=== PATIENT | male | born 1960 | race Caucasian/White ===

== ENCOUNTER 2019-04-06 16:12 | Observation (INO) | payer OTHER ==
[~2019-04-06] VITALS: Ht 175.3 cm; Wt 52.2 kg
[2019-04-06 16:28] VITALS: BP 112/76
[2019-04-06] MEDS ORDERED: KETOROLAC 60 MG/2 ML VIAL IM ONE (16:45)
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
--- NOTE | 2019-04-06 17:07 | NUR ---
CT AT THE BEDSIDE. GAVE WATER TO DRINK. CVANNOT PEE AT THIS TIME.
[2019-04-06 17:34] LABS: BASOPHILS # (AUTO) 0.2 K/uL (0.00-0.22); BASOPHILS % (AUTO) 1.3 % (0.0-2.0); EOSINOPHILS # (AUTO) 0.1 K/uL (0-0.4); EOSINOPHILS % (AUTO) 0.9 % (0.0-4.0); HEMATOCRIT 43.5 % (36-52); HEMOGLOBIN 14.8 g/dL (12.0-18.0); LYMPHOCYTES # (AUTO) 1.8 K/uL (2.0-11.5); LYMPHOCYTES % (AUTO) 15.3 % (20.5-51.1); MEAN CORPUSCULAR HEMOGLOBIN 31 pg (27-31); MEAN CORPUSCULAR HGB CONC 34 g/dL (33-37); MEAN CORPUSCULAR VOLUME 89.6 fL (80-94); MONOCYTES # (AUTO) 1.1 K/uL (0.8-1.0); MONOCYTES % (AUTO) 9.1 % (1.7-9.3); NEUTROPHILS # (AUTO) 8.8 K/uL (1.8-7.7); NEUTROPHILS % (AUTO) 73.4 % (42.2-75.2); PLATELET COUNT (AUTO) 150 K/uL (140-450); RED BLOOD CELL COUNT(AUTO) 4.85 MIL/uL (4.20-6.10); RED CELL DISTRIBUTION WIDTH 17.6 % (11.6-13.7); WHITE BLOOD COUNT (AUTO) 12.1 K/uL (4.8-10.8)
[2019-04-06 17:44] LABS: BILIRUBIN,URINE NEGATIVE (NEGATIVE); BLOOD, URINE NEGATIVE (NEGATIVE); COLOR,URINE YELLOW (YELLOW); LEUKOCYTE ESTERASE ,URINE TRACE (NEGATIVE); NITRITE, URINE NEGATIVE (NEGATIVE); UGLUCOSE NEGATIVE (NEGATIVE)
[2019-04-06 18:00] LABS: ANION GAP 9.6 (8-16); POTASSIUM 3.6 mmol/L (3.5-5.1)
[2019-04-06 18:05] LABS: ALBUMIN 2.4 g/dL (3.4-5.0); TOTAL BILIRUBIN 0.6 mg/dL (0.0-1.0)
--- NOTE | 2019-04-06 18:20 | NUR ---
PT ASKING FOR SNACKS TO EAT. OKAY FOR PO INTAKE PER MD. GAVE SOME JUICE, MILK TO THE PT.
--- NOTE | 2019-04-06 18:42 | NUR ---
[employer] AT THE BEDSIDE. PT ATE HIS SNACKS, NO VOMITING AT THIS TIME.
[2019-04-06 19:09] LABS: APPEARANCE,URINE HAZY (CLEAR)
--- NOTE | 2019-04-06 19:15 | NUR ---
TALKING TO PT REGARDING HIS CT RESULT. INFORMED HIM WILL BE ADMITTED. ORDERED REGULAR DIET FOR THE PT.
[2019-04-06 19:16] LABS: RBC,URINE NONE SEEN /HPF (0-5); WBC,URINE 0-5 /HPF (0-5)
[2019-04-06] MEDS ORDERED: ALBUTEROL 0.083% 2.5 MG/3 ML NEBU IH PRN (19:25)
[2019-04-06] MEDS ORDERED: HYDROcodone/APAP 5/325 MG 1 TAB TAB PO PRN (19:25)
[2019-04-06] MEDS ORDERED: MORPHINE SULFATE 4 MG/ML SYR IVP PRN (19:25)
[2019-04-06] MEDS ORDERED: ONDANSETRON 4 MG/2 ML VIAL IVP PRN (19:25)
[2019-04-06] MEDS ORDERED: ENAL-197 PO (19:59)
[2019-04-06] MEDS ORDERED: METO25TA PO (19:59)
[2019-04-06] MEDS ORDERED: NAPR-54 PO (19:59)
[2019-04-06] MEDS ORDERED: CLOP75TA26 PO (19:59)
[2019-04-06 20:30] VITALS: BP 144/90
--- NOTE | 2019-04-06 20:30 | NUR ---
Patient will be admitted to care of DR TOM WARREN. Admited to [facility] FLOOR. Will go to room 112 B. Belongings list completed. Report to CAITLYN NASH.
--- NOTE | 2019-04-06 20:30 | NUR ---
ADMITTED A 59M FROM ER. CAME BY ANGELA . C/O GENERALIZED WEAKNESS AND LUMBAR PAIN. ON MED SURG UNDER OBSERVATION. WITH NO /CO ANY DISCOMFORT AND PAIN AT THIS TIME. AMBULATE WITH SOME ASSISTANCE DUE TO WEAKNESS. ORIENTED TO HOSPITAL ROUTINES. PLAN OF CARE DISCUSSED AND VERBALIZED UNDERSTANDING. BED PLACED IN LOW POSITION. FREQ CHECK NEEDED. CALL LIGHT AND URINAL WITHIN EASY REACH. SKIN VERY DRY BUT INTACT. HAS HL ON THE RT AC G#20. CLEAR AND PATENT. WILL CONTINUE TO MONITOR AND FOLLOW UP ADMIT ORDER.
[2019-04-06] MEDS: MORPHINE SULFATE 2 MG/ML SYR IVP PRN (22:04)
--- NOTE | 2019-04-06 23:43 | NUR ---
PAGED DR. WARREN FOR PT WANTS SLEEPING PILL. DR. JUSTIN COMPUTATIONAL THEORY SCIENTIST. CALLED BACK WITH ORDER.
[2019-04-07] VITALS: BP 127/74
[2019-04-07] MEDS ORDERED: ZOLPIDEM 5 MG TAB PO SCH
--- NOTE | 2019-04-07 01:00 | NUR ---
SLEEPING. NO S/S OF ANY DISCOMFORT NOR PAIN NOTED. WILL CONTINUE TO MONITOR.
[2019-04-07] MEDS: MORPHINE SULFATE 2 MG/ML SYR IVP PRN ×3 (02:09→10:53)
--- NOTE | 2019-04-07 03:09 | NUR ---
MADE ROUNDS. PT ASLEEP. NO S/S OF ANY DISCOMFORT /PAIN NOTED.
--- NOTE | 2019-04-07 05:00 | NUR ---
MADE ROUNDS. PT STARTING TO GET SOME SLEEP AFTER GIVEN PAIN MED. WILL CONTINUE TO MONITOR.
--- NOTE | 2019-04-07 07:20 | NUR ---
ENDORSED PT IN STABLE CONDITION TO AM NURSE.
--- NOTE | 2019-04-07 07:25 | NUR ---
RECEIVED PT FROM TAILINGS MAN NURSE, PT IS AWAKE AND LYING ON THE BED WITH SIDE RAILS UP AND CALL LIGHT WITHIN REACH, PT HAS AN IV LINE ON THE RT AC G.20 ON SALINE LOCK. PT DENIES PAIN AND NO SOB NOTED. WILL MONITOR PT.
[2019-04-07 07:54] LABS: BASOPHILS # (AUTO) 0.1 K/uL (0.00-0.22); BASOPHILS % (AUTO) 0.5 % (0.0-2.0); EOSINOPHILS # (AUTO) 0.1 K/uL (0-0.4); HEMATOCRIT 39.7 % (36-52); HEMOGLOBIN 13.5 g/dL (12.0-18.0); LYMPHOCYTES # (AUTO) 1.4 K/uL (2.0-11.5); LYMPHOCYTES % (AUTO) 11.3 % (20.5-51.1); MEAN CORPUSCULAR HEMOGLOBIN 30 pg (27-31); MEAN CORPUSCULAR HGB CONC 34 g/dL (33-37); MEAN CORPUSCULAR VOLUME 89.5 fL (80-94); MONOCYTES # (AUTO) 1.1 K/uL (0.8-1.0); MONOCYTES % (AUTO) 8.4 % (1.7-9.3); NEUTROPHILS # (AUTO) 9.9 K/uL (1.8-7.7); NEUTROPHILS % (AUTO) 78.8 % (42.2-75.2); PLATELET COUNT (AUTO) 144 K/uL (140-450); RED BLOOD CELL COUNT(AUTO) 4.44 MIL/uL (4.20-6.10); RED CELL DISTRIBUTION WIDTH 17.5 % (11.6-13.7); WHITE BLOOD COUNT (AUTO) 12.6 K/uL (4.8-10.8)
[2019-04-07 08:00] VITALS: BP 125/81
[2019-04-07 08:00] LABS: ANION GAP 12.1 (8-16); CARBON DIOXIDE 24.4 mmol/L (21-32); CREATININE 0.9 mg/dL (0.7-1.3); MAGNESIUM 1.7 mg/dL (1.8-2.4); PHOSPHORUS 3.1 mg/dL (2.5-4.9); POTASSIUM 3.5 mmol/L (3.5-5.1); TOTAL BILIRUBIN 0.7 mg/dL (0.0-1.0)
[2019-04-07] MEDS ORDERED: ENOXAPARIN 40 MG/0.4 ML SYR SUBQ SCH (09:00)
--- NOTE | 2019-04-07 09:22 | NUR ---
PT IS AWAKE AND PARAMETER CHECKED, SUBQ MEDICATION WAS GIVEN NOW AND PT TOLERATED IT. WILL MONITOR PT.
--- NOTE | 2019-04-07 10:10 | NUR ---
DR. WARREN TALKING TO PT AND FAMILY NOW REGARDING THE POC FOR THE PT.
--- NOTE | 2019-04-07 11:05 | NUR ---
GOT A CALL FROM [facility] INFORMING ABOUT THE PT'S AUTHORIZATION FOR THE INSURANCE, [id number].
--- NOTE | 2019-04-07 11:06 | NUR ---
ALBA, FROM [facility]MISSION [facility]PT OF [facility] CALLED AND INFORMED THAT PT WILL BE TRANSFERRED TO #[id number] AND NO. TO CALL TO GIVE REPORT IS [phone] EXT. [phone]
[2019-04-07 11:31] LABS: PROTHROMBIN TIME 10.4 secs (10.8-13.4)
--- NOTE | 2019-04-07 11:46 | NUR ---
CALLED [facility] AT [phone] EXT. [phone] AND GAVE REPORT TO CAITLYN PAULINO REGARDING THE PT. INFORMED RN THAT PT WILL BE GOING TO [id number] AND WILL BE TRANSFERRED FOR A NEURO-SURGERY EVALUATION AND RN VERBALIZED UNDERSTANDING
--- NOTE | 2019-04-07 12:15 | NUR ---
DISCHARGED PT TO [facility]IA [facility] WITH [facility], IV AND ARM BAND REMOVED, DISCHARGED TEACHINGS AND INSTRUCTIONS GIVEN TO PT AND VERBALIZED UNDERSTANDING. PT IS STABLE AT THIS TIME.
== END 2019-04-07 12:22 | disposition short-term general hospital (02) ==
LOC: MED 16:12 → MTU 20:05
PROVIDERS: ADMIT Internal Medicine Pulmonary Disease; ATTEND Internal Medicine Pulmonary Disease
DX: R91.8 Other nonspecific abnormal finding of lung field (principal); I25.10 Atherosclerotic heart disease of native coronary artery without angina pectoris; F17.210 Nicotine dependence, cigarettes, uncomplicated
CPT/HCPCS: 36415; 71250; 72131; 74176; 80053; 81001; 82150; 83690; 83735; 84100; 85025; 85610; 85730; 87081; 94760; 96372; 96374; 96376; 99285; G0378; J1650; J1885; J2270